=== PATIENT | female | born 1990 | race Caucasian/White ===

== ENCOUNTER → 2018-09-24 15:28 | Outpatient (CLI) | payer MEDICAID, SELFPAY ==
--- NOTE | 2018-09-24 15:36 | RAD_ITS ---
STUDY: X-RAY CHEST REASON FOR EXAM: Female, 27 years old. Pneumonia TECHNIQUE: PA and lateral chest COMPARISON: None. FINDINGS: The lungs are clear and expanded. There is no demonstrated pleural abnormality. Normal size heart. Normal mediastinum and addison. Normal visualized pulmonary arteries. Normal visualized aortic arch and descending thoracic aorta. Normal visualized thoracic spine. Normal visualized ribs, clavicles, and shoulders. There is no demonstrated abnormality of the visualized soft tissue structures of the upper abdomen. RAD/Chest PA and Lateral IMPRESSION: Normal x-ray examination of the chest. Electronically Signed: Fuentes Alvarado, at 15:56 EDT Tel , Service support ,
[2018-09-24 17:49] LABS: Absolute Lymphocyte Count 2.11 X10^3/ul (0.83-4.51); Basophil# 0.07 X10^3/uL; Eosinophil# 0.27 X10^3/uL; Eosinophils% 3.9 % (0-5); Hematocrit 40.6 % (37-47); Hemoglobin 13.4 g/dl (12.0-15.0); Lymphocyte # 2.11 X10^3/ul (4.0); Lymphocyte % 30.2 % (19-41); Mean Corpuscular Hgb 31.8 pg (27.0-32.0); Mean Corpuscular Volume 96.2 fL (81-99); Mean Platelet Vol. 9.1 fl (6.2-12.0); Monocyte# 0.51 X10^3/uL; Monocyte% 7.3 % (0-10); Neutrophil # 4.01 X10^3/uL (2.7-7.7); Neutrophil % 57.5 % (47-70); Platelet Count 496 K/mm3 (150-450); RBC Distribution Width CV 12.8 % (11.6-14.6); RBC Distribution Width SD 44.9 fl (35.1-43.9); Red Blood Count 4.22 M/mm3 (4.2-5.4)
[2018-09-24 18:01] LABS: POSITIVE COUNT NO; POSITIVE DIFFERENTIAL NO; POSITIVE MORPHOLOGY NO
[2018-09-24 18:04] LABS: ALB/GLOB Ratio 1.4 RATIO (0.9-2.4); AST(SGOT) 9 U/L (15-37); Alanine Aminotransfer ALT/SGPT 25 U/L (13-56); Albumin, Serum 4.3 g/dL (3.2-5.0); Alkaline Phosphatase 74 U/L (45-117); Anion Gap 7 (5-15); BUN 16 mg/dL (7-18); BUN/Creat Ratio 24.5 RATIO (10-20); Calcium,Total 8.4 mg/dL (8.5-10.1); Chloride 110 mmol/L (98-107); Creatinine, Serum 0.65 mg/dL (0.55-1.02); EST Glomerular Filtration Rate 114 mL/min (>60); Est Glom Filt Rate - Afr Amer 138 mL/min (>60); Globulin 3.1 g/dL (2.2-4.2); Glucose 85 mg/dL (74-106); Potassium 3.8 mmol/L (3.5-5.1); Protein, Total 7.4 g/dL (6.4-8.2); Sodium Level 141 mmol/L (136-145); Thyroid Stim Hormone (TSH) 0.85 uIU/mL (0.358-3.74)
== END ==
PROVIDERS: Family Provider Family Medicine; PCP Family Medicine; Referring Provider Family Medicine; Visit Provider Family Medicine
DX: K21.9 Gastro-esophageal reflux disease without esophagitis (principal); F90.9 Attention-deficit hyperactivity disorder, unspecified type; J18.9 Pneumonia, unspecified organism
CPT/HCPCS: 36415; 71046; 80053; 84443; 85025

== ENCOUNTER → 2018-11-05 | Outpatient (CLI) | payer MEDICAID, SELFPAY ==
--- NOTE | 2018-11-06 10:06 | PFT ---
INTRODUCTION: The patient is a 28-year-old female that presents for pulmonary function studies secondary to a diagnosis of cough. Respiratory therapy reports good patient effort. Bronchodilators were used during testing. INTERPRETATION: Forced expiration spirometry demonstrates no evidence of a large airways obstructive ventilatory defect. There was no significant response to aerosolized bronchodilators. Spirograms are of good quality and plateau normally. Body plethysmography was performed and reveals lung volumes to be within normal limits. Diffusing capacity by single breath CO is at the lower limits of normal. IMPRESSION: Normal spirometry and lung volumes. Diffusing capacity is at the lower limits of normal. There was no significant bronchodilator response.
== END | disposition home or self-care (01) ==
LOC: PSN 13:26
PROVIDERS: Family Provider Family Medicine; PCP Family Medicine; Referring Provider Family Medicine; Visit Provider Family Medicine
DX: R05 Cough (principal)
CPT/HCPCS: 94060; 94726; 94729

== ENCOUNTER → 2018-11-12 | Outpatient (CLI) | payer MEDICAID, SELFPAY ==
--- NOTE | 2018-11-12 15:27 | RAD_ITS ---
STUDY: X-RAY - RIGHT WRIST REASON FOR EXAM: Female, 28 years old. Pain TECHNIQUE: 3 view(s) of the wrist were obtained. COMPARISON: None. FINDINGS: Normal visualized distal radius and ulna. Normal radiocarpal articulation. Normal distal radioulnar articulation. Normal carpal bones. Normal carpal articulations. Normal carpometacarpal articulation of the thumb. Normal second through fifth carpometacarpal articulations. Normal visualized metacarpal bones. The soft tissue structures are unremarkable. RAD/Wrist min 3 Views IMPRESSION: Normal x-ray examination of the wrist. Electronically Signed: Elan Case DO at 19:24 EDT Tel [phone], Service support ,
--- NOTE | 2018-11-12 15:27 | RAD_ITS ---
STUDY: X-RAY - LEFT WRIST REASON FOR EXAM: Female, 28 years old. Pain TECHNIQUE: 3 view(s) of the wrist were obtained. COMPARISON: None. FINDINGS: Normal visualized distal radius and ulna. Normal radiocarpal articulation. Normal distal radioulnar articulation. Normal carpal bones. Normal carpal articulations. Normal carpometacarpal articulation of the thumb. Normal second through fifth carpometacarpal articulations. Normal visualized metacarpal bones. The soft tissue structures are unremarkable. RAD/Wrist min 3 Views IMPRESSION: Normal x-ray examination of the wrist. Electronically Signed: Elan Case DO at 19:25 EDT Tel [phone], Service support ,
== END | disposition home or self-care (01) ==
LOC: MTRAD 15:26
PROVIDERS: Family Provider Family Medicine; PCP Family Medicine; Referring Provider Family Medicine; Visit Provider Family Medicine
DX: M25.531 Pain in right wrist (principal); M25.532 Pain in left wrist; G89.29 Other chronic pain
CPT/HCPCS: 73110

== ENCOUNTER → 2018-12-18 | Outpatient (CLI) | payer MEDICAID, SELFPAY ==
[2018-12-14 15:48] VITALS: BMI 25.0
--- NOTE | 2018-12-18 14:46 | US_ITS ---
STUDY: ABDOMINAL ULTRASOUND - RIGHT UPPER QUADRANT REASON FOR VISIT: Female, 28 years old. Pain TECHNIQUE: Ultrasound evaluation of the right upper quadrant was performed with real-time and static barahona-scale imaging. TECHNICAL QUALITY: Adequate. COMPARISON: None. FINDINGS: Liver: The liver measures 15 cm. There is normal echogenicity of the liver. The bile ducts are within normal limits. There is hepatic color flow. The direction of portal flow is hepatopetal. There is no demonstrated mass lesion. Gallbladder: Normal distended gallbladder. The gallbladder wall measures 2 mm. There is a negative sonographic Sher's sign. There is no pericholecystic fluid. There are no gallstones. Common Bile Duct (C.B.D.): The common bile duct measures 3 mm. Pancreas: Normal size of the head, body and tail of the pancreas. There is normal echogenicity of the pancreas. There is no demonstrated pancreatic mass or cyst. Right Kidney: Normal size of the right kidney. The right kidney measures 11 cm. Normal renal cortex. There is no demonstrated renal mass or cyst. There is no right hydronephrosis. US/Gallbladder IMPRESSION: Normal right upper quadrant ultrasound examination. Electronically Signed: Senthil Diamond, at 17:41 EDT Tel , Service support ,
== END | disposition home or self-care (01) ==
LOC: US 14:44
PROVIDERS: Family Provider Family Medicine; PCP Family Medicine; Referring Provider Surgery; Visit Provider Surgery
DX: R14.0 Abdominal distension (gaseous) (principal); R10.9 Unspecified abdominal pain
CPT/HCPCS: 76705

== ENCOUNTER → 2018-12-23 | Outpatient (CLI) | payer MEDICAID, SELFPAY ==
[2018-12-14 15:48] VITALS: BMI 25.0
--- NOTE | 2018-12-23 08:15 | RAD_ITS ---
STUDY: AIR-CONTRAST UPPER GI SERIES. REASON FOR EXAM: Female, 28 years old. Abdominal pain. Gastroesophageal reflux disease. FLUOROSCOPY TIME (if supplied): (0:52) minutes/seconds. 22 images were obtained. TECHNIQUE: The patient ingested barium. Multiple images of the esophagus stomach and duodenum were obtained. COMPARISON: None. FINDINGS: The esophagus is unremarkable. There is no evidence of a obstruction. No mass lesion is seen. There is no evidence of gastroesophageal reflux. The stomach and duodenum are unremarkable. RAD/Upper GI Series Only IMPRESSION: Unremarkable air contrast upper GI series. Electronically Signed: Dominik Nunes, at 15:13 EDT , Service support ,
== END | disposition home or self-care (01) ==
LOC: RAD 08:09
PROVIDERS: Family Provider Family Medicine; PCP Family Medicine; Referring Provider Surgery; Visit Provider Surgery
DX: R10.9 Unspecified abdominal pain (principal); R14.0 Abdominal distension (gaseous)
CPT/HCPCS: 74246

== ENCOUNTER 2019-01-08 09:06 | Day surgery (SDC) | payer MEDICAID, SELFPAY ==
--- NOTE | 2018-12-14 04:36 | HP_ITS ---
Intake Vital Signs 12/14/18 Height 5 ft 2 in 12/14/18 Weight: 137 lb 12/14/18 Body Mass Index (BMI) 25.0 12/14/18 Blood Pressure 100/64 12/14/18 Blood Pressure Location Rt brachial 12/14/18 Blood Pressure Position Sitting 12/14/18 Respiratory Rate 14 12/14/18 Pulse Rate 64 12/14/18 Pulse Source Monitor 12/14/18 Pulse Ox 100 12/14/18 Oxygen Delivery Method room air Intake Visit Reasons: Gastroesophageal reflux disease (GERD) Radial Drill Operator Required: No Is patient in pain?: Yes (all of abdomen) Allergies acetaminophen [From Midol] Allergy (Unknown, Verified 12/14/18 15:49) Unknown pamabrom [From Midol] Allergy (Unknown, Verified 12/14/18 15:49) Unknown Medications carbamazepine ER 400 mg tablet,extended release,12 hr 400 mg PO BID 12/14/18 [History Confirmed 12/14/18] fluticasone propionate 50 mcg/actuation nasal spray,suspension 1 spray INTRANASAL DAILY 12/14/18 [History Confirmed 12/14/18] levonorgestrel 20 mcg/24 hours (5 yrs) 52 mg intrauterine device 1 device INTRAUTERINE ONCE 12/14/18 [History Confirmed 12/14/18] montelukast 10 mg tablet 10 mg PO QPM 12/14/18 [History Confirmed 12/14/18] omeprazole 40 mg capsule,delayed release 40 mg PO DAILY 12/14/18 [History Confirmed 12/14/18] topiramate 100 mg tablet 100 mg PO DAILY tab 12/14/18 [History Confirmed 12/14/18] [facility] Medical History GERD (gastroesophageal reflux disease) (Acute) Bipolar disorder (Acute) ADHD (Acute) Acid reflux (Acute) Constipation (Acute) Nausea (Acute) Abdominal pain (Acute) Asthma (Acute) SOB (shortness of breath) (Acute) Anxiety (Acute) Depression (Acute) Numbness and tingling (Acute) Fatigue (Acute) Surgical History History of incision and drainage (Acute) Hx of wisdom tooth extraction (Acute) History of (Acute) Hx of tonsillectomy (Acute) Family History Father Asthma Social History Smoking Status: Current every day smoker second hand exposure: No alcohol intake: current alcohol intake frequency: holidays/special occasions only caffeine: Yes HPI HPI HPI: LUCY LEYVA, is a 28 F who presents to the office today for HPI HPI Surgical H&P: Yes HPI: LUCY LEYVA, is a 28 F who presents to the office today for who is referred to me today by Dr Mikey Mcmahon regarding problems with acid reflux, GERD, bloating, food regurgitation, epigastric pain, respiratory symptoms with shortness of breath possible pneumonia possible asthma. The patient states 1 year ago she thought she swallowed a chicken bone. She was seen by Dr. Marlo WILKERSON who suggested that she had severe reflux. Treatment was initiated with Prilosec with good results. The patient states that she likes to eat extraordinarily spicy foods. She does not get the sense of distinct water brash or heartburn. She gets food that gets partially stuck. She believes in homeopathic remedies and is been trying to take vinegar to resolve her issues. More recently she has had pneumonia and increased respiratory problems thought possibly to be asthma. On top of that she was a cigarette smoker. She states that she has stopped the cigarettes but now she is vaping. She is aware that that is not ideal. For 2 weeks she had run out of her Prilosec. She states that her symptoms recurred with a vengeance. Dr Mikey Mcmahon saw the patient reinitiated her on omeprazole 40 mg daily. The patient states that she is improved but clearly not back to baseline. She has previously had one child via . She has not had to her knowledge a barium study of her esophagus and stomach nor an upper endoscopy yet. She did have a ENT fiberoptic exam of her oral pharynx. That is when she was instructed it was quite significantly inflamed. The patient states that she is high energy with some requirement for ongoing mental care. Bipolar disorder, PTSD, ADHD. She feels this is certainly aggravating her situation ROS General General: Yes fatigue; no weight change, appetite, colon cancer, breast cancer or weakness HEENT HEENT: No difficulty swallowing, eye injury, eye surgery, swollen glands or hoarseness Endo Endocrine: No thyroid disease, diabetes mellitus, thyroid cancer, Hair loss, heat intolerance or cold intolerance Skin Skin: No rash or changing moles Musc Musculoskeletal: Yes back problems; no arthritis, rheumatoid arthritis, gout or joint pain Cardio Cardiovascular: No murmur, pacemaker, heart disease, atrial fibrillation, high blood pressure, heart attack, heart stent, palpitations, shortness of breat with exertion or chest pain Psych Psychiatric: Yes depression and anxiety; no hearing voices Resp Respiratory: Yes shortness of breath, No sleep apnea, No cough, No COPD, Yes asthma, No emphysema, No wheezing Gastro Gastrointestinal: Yes abdominal pain, Yes nausea or vomiting, No diarrhea, Yes constipation, No blood in stool, Yes acid reflux, No hemorrhoids, No ulcers, No gallbladder problem, No black,tarry stools Sujit Hematologic: No blood thinners, No blood disorders, No bleeding, No anemia, No blood clots Neuro Neurologic: Yes numbness, Yes tingling, No weakness Exam Const General: cooperative, healthy appearing, comfortable, no acute distress Nutritional Appearance: average body habitus Orientation: alert, awake [facility] Head: normal to inspection Eyes General: appearance normal, both eyes and all related structures Neck Neck: normal visual inspection Chest Chest palpation & inspection: normal inspection of the chest Resp Effort & Inspection: normal respiratory effort Auscultation: clear to auscultation bilaterally Cardio Rate: regular rate Rhythm: regular rhythm Heart Sounds: no murmurs GI Palpation: soft, no hepatosplenomegaly Auscultation: normal bowel sounds Musc Cervical Spine: normal cervical lordosis Skin General: no rashes or lesions noted Neuro Cognition: normal cognition Extrem General: no calf tenderness bilaterally Psych Affect: animated Assessment & Plan 1. Gastroesophageal reflux disease, esophagitis presence not specified K21.9 Orders Orders: EGD Today 2. Epigastric pain R10.13 Plan 28-year-old female with signs and symptoms consistent with epigastric pain bloating and findings that would certainly suggest reflux and gastroesophageal reflux disease. History of cigarette smoking now apparently ceased but converted to vaping. History of significant abnormality noted on ENT evaluation. Significant improvement noted on omeprazole although currently she is not back to baseline. As noted above she does believe in homeopathic remedies. I suspect as there is Dr Mikey Mcmahon that this patient has clinically significant gastroesophageal reflux disease. I propose for her a contrast upper GI study. I also propose for her a esophagogastroduodenoscopy with possible biopsy. Would like to inspect for possible H. pylori or possible eosinophilic esophagitis in addition to the anticipated reflux. I do not believe that the patient will tolerate being off her medications so I do not propose a Stone pH probe placement. However the patient also eventually had a child. I would like to know whether she has a normal gallbladder 1 with stones prior to proposing potential for a surgical reflux procedure. I did briefly discuss with her the possible technique of a laparoscopic Tyrel fundoplication or toupet procedure. Of course the patient would have to have esophageal manometry prior to that. To help evaluate her gallbladder we will obtain a gallbladder ultrasound. She has had an opportunity to ask and have questions answered. I very much appreciate the kind opportunity of assisting with her surgical care. I anticipate further office follow-up subsequent to the above testing. Naturally the patient was vigorously encouraged to make all attempts to cease nicotine completely CC: Dr Mikey Mendoza M.D., F.A.C.S. Plan Detail Other Orders Orders: Gallbladder Today R10.9, R14.0 Upper GI Series Only Today R10.9, R14.0 Coding Level of Care Code Comprehensive,moderate Diagnoses Gastroesophageal reflux disease, esophagitis presence not specified K21.9 ??Esophagitis presence: esophagitis presence not specified Epigastric pain R10.13 ??Abdominal location: epigastric 12/14/18 1636 <Electronically signed by Fuentes garcia MD> Date _ Fuentes Mendoza MD I have re-examined the patient. There are no clinical changes since date of exam.
[2018-12-14 15:48] VITALS: BMI 25.0
[2019-01-08 09:29] LABS: Internal QC Validated? YES +Cl - CLEAR BKGD; Pregnancy, Urine Negative Negative
[2019-01-08 09:30] VITALS: BP 96/67; PULSE 71; RESP 16; TEMP 36.8; O2SAT 99; BMI 26.2
--- NOTE | 2019-01-08 10:15 | IMM_PTH ---
PATIENT: LUCY LEYVA LOC: EN U#:[id number] AGE/SX: 28/F ROOM: RE01/08/[address]: Dr. Fuentes Mendoza MD : 1990 BED: DIS: 01/08/2019 SPEC #: [id number] RECD: 01/08/19 13:28 STATUS: RUBIN RERoslyn #: [id number] GALINA: 01/08/19 10:[address]: Fuentes Mendoza DEPT: IMMUNOHISTOCHEMISTRY RECD BY: Kaylyn Alvarez ENTERED: 01/08/19 13:29 SP TYPE: IMMUNO OTHR DR: Dr. Mikey Mcmahon MD Tissues: B - Stomach, NOS Procedures: H Pylori (initial) PHYSICIAN & INSTITUTION [place] [address] SPECIMEN INFORMATION: Tissue Source: B - Antral biopsy Clinical Info: GERD Specimen Number: [id number] CPT code: 25251 METHODOLOGY: Deparaffinized sections of prefer/formalin-fixed tissue or PAP/DQ stained slides are incubated with monoclonal/polyclonal antibodies/oligonucleotide probes. Localization is made via biotin free immunoperoxidase method. Appropriate controls are performed and reacted as expected. Results on target cell population are indicated in the following table: RESULTS: ANTIBODY / CLONE RESULT Block B H Pylori (polyclonal) negative These tests were developed and their performance characteristics determined by [facility]. They may not have been cleared or approved by the U.S. Food and Drug Administration. The FDA has determined that such clearance or approval is not necessary. INTERPRETATION: B. Antral biopsy: Negative for Helicobacter pylori organisms. SJ:greg 01/12/19
--- NOTE | 2019-01-08 10:15 | EGD_PTH ---
PATIENT: LUCY LEYVA LOC: EN U#:[id number] AGE/SX: 28/F ROOM: RE01/08/[address]: Dr. Fuentes Mendoza MD : 1990 BED: DIS: 01/08/2019 SPEC #: [id number] RECD: 01/08/19 12:20 STATUS: RUBIN CHETNA #: [id number] GALINA: 01/08/19 10:[address]: Fuentes Mendoza DEPT: SURGICAL PATHOLOGY RECD BY: Dawna Kiser ENTERED: 01/08/19 13:26 SP TYPE: EGD BIOPSY OT DR: Dr. Mikey Mcmahon MD Tissues: A - Duodenum, NOS B - Gastric mucous membrane C - Esophageal mucous membrane D - Esophageal mucous membrane Procedures: Special Stain Group II Surgery Specimen Level IV Alcian Blue/PAS (control) HEADER OPERATION: EGD ([facility]) PRE-OP DIAGNOSIS: GERD TISSUE SUBMITTED: A. Duodenal biopsy, B. Antral biopsy for H. pylori and pathology, C. Distal esophageal biopsy, D. Mid esophageal biopsy MICROSCOPIC DIAGNOSIS A. Duodenal biopsy: Fragments of duodenal mucosa, no pathologic diagnosis. B. Antral biopsy: Mild gastritis. See microscopic description and comment. C. Distal esophageal biopsy: Fragments of gastroesophageal mucosa with mild chronic inflammation. Intestinal metaplasia (goblet cell metaplasia) is not identified. See comment. D. Mid esophageal biopsy: Fragments of squamous epithelium, no pathologic diagnosis. SJ:greg 01/11/19 COMMENT B. The results of immunohistochemistry for Helicobacter pylori will be reported separately ([id number]). C. Alcian blue/PAS stain with matched control is used in the evaluation of the specimen. MICROSCOPIC DESCRIPTION Slides are reviewed. B. The specimen shows fragments of gastric mucosa with chronic inflammatory cell infiltrates in the lamina propria consisting of lymphocytes and plasma cells, consistent with mild chronic gastritis. GROSS DESCRIPTION A - Received in fixative is one container labeled with the patient's name and designated duodenal biopsy. The specimen consists of two irregular fragments of reddish-pink soft tissue that in aggregate measure 0.2 x 0.1 x 0.1 cm. The specimen is totally submitted in one cassette. B - Received in fixative is one container labeled with the patient's name and designated antral biopsy. The specimen consists of one irregular fragment of romero-pink soft tissue that measures 0.2 x 0.1 x 0.1 cm. The specimen is totally submitted in one cassette. C - Received in fixative is one container labeled with the patient's name and designated distal esophageal biopsy. The specimen consists of one irregular fragment of romero-pink soft tissue that measures 0.2 x 0.1 x 0.1 cm. The specimen is totally submitted in one cassette. D - Received in fixative is one container labeled with the patient's name and designated mid esophageal biopsy. The specimen consists of one irregular fragment of romero-pink soft tissue that measures 0.2 x 0.1 x 0.1 cm. The specimen is totally submitted in one cassette. / CE:greg 01/08/19 TC:3 CPT: 25792 x4, 46496
[2019-01-08 10:53] VITALS: BP 100/63; BP 96/67; PULSE 67; RESP 16; TEMP 36.7; O2SAT 100
[2019-01-08 10:55] VITALS: BP 96/67; BP 99/65; PULSE 63; RESP 16; O2SAT 98
[2019-01-08 11:00] VITALS: BP 110/76; BP 96/67; PULSE 65; RESP 16; O2SAT 100
[2019-01-08 11:07] VITALS: BP 103/59; BP 96/67; PULSE 65; RESP 16; TEMP 36.6; O2SAT 98
[2019-01-08 11:23] VITALS: BP 96/67
--- NOTE | 2019-01-13 10:43 | OP.ENDO_ITS ---
01/13/2019 Mikey Mcmahon [address] [place] [address] Re : Upper GI endoscopy procedure for Alex Freep[place] Dear Dr. Mcmahon This procedure was performed on Tuesday, January 08, 2019. My impressions and recommendations are as follows: Impressions : - Z-line variable, 36 cm from the incisors. Biopsied distal esophagus at EG junction Mid esophagea biopsies obtained as well - Erythematous mucosa in the stomach. Biopsied. - Normal examined duodenum. Biopsied. Recommendations : - Discharge patient to home. - Resume previous diet. - Use sucralfate tablets 1 gram PO QID. Patient is on omeprazole. Possbile bile reflux gastritis If patient doesn't improve, consider a gastric emptying study - Telephone my office for pathology results in 1 week. - Continue present medications. My findings are described in the full procedure note, which is enclosed. If I can be of further assistance, please feel free to contact me at Doctor phone number(s): Work: . Sincerely, Fuentes Mendoza MD 01/08/2019 10:54:02 AM This report has been signed electronically.
== END 2019-01-08 11:33 | disposition home or self-care (01) ==
LOC: EN 09:07 → AC 09:08
PROVIDERS: Anesthesiology; Family Provider Family Medicine; PCP Family Medicine; Referring Provider Family Medicine; Visit Provider Surgery
PROC: 0DJ08ZZ Inspection of Upper Intestinal Tract, Via Natural or Artificial Opening Endoscopic (ICD-10-PCS; CPT 43235; principal; 2019-01-08 10:10)
DX: K29.70 Gastritis, unspecified, without bleeding (principal); K21.9 Gastro-esophageal reflux disease without esophagitis; F31.9 Bipolar disorder, unspecified; F90.9 Attention-deficit hyperactivity disorder, unspecified type; J45.909 Unspecified asthma, uncomplicated; F41.9 Anxiety disorder, unspecified; F32.9 Major depressive disorder, single episode, unspecified; F43.10 Post-traumatic stress disorder, unspecified; M41.9 Scoliosis, unspecified; Z86.2 Personal history of diseases of the blood and blood-forming organs and certain disorders involving the immune mechanism; Z79.899 Other long term (current) drug therapy; F17.200 Nicotine dependence, unspecified, uncomplicated
CPT/HCPCS: 43239; 81025; 88305; 88313; 88342; J7120; J2405

== ENCOUNTER → 2019-02-04 | Outpatient (CLI) | payer MEDICAID, SELFPAY ==
[2019-01-08 09:30] VITALS: BMI 26.2
--- NOTE | 2019-02-04 13:05 | NM_ITS ---
CLINICAL: 28-year-old male with reported history of postprandial abdominal pain and bloating, early satiety. SEMI-SOLID PHASE 99m Tc SULFUR COLLOID GASTRIC EMPTYING STUDY COMPARISON: Air contrast upper GI series report 12/23/2018 FINDINGS: The patient was administered 1.0 mCi of 99m Tc sulfur colloid mixed with oatmeal and consumed per os. Image acquisitions in the anterior-posterior projections for a total of 60 minutes. There is prompt visualization of the stomach. There is no gastroesophageal reflux identified. The T1/2 linear fit was calculated to be 36.56 minutes, (Normal: 12-56 minutes). NM/Gastric Emptying Study IMPRESSION: 1. NORMAL 99m Tc sulfur colloid semi-solid phase (oatmeal) gastric emptying imaging examination. A. There is normal and preserved semi-solid phase gastric emptying compared to normal controls. (Sven et al, J Nucl Med Tech 38: 186, 2010). Electronically Signed: Oleg Tovar DO at 0:29 EDT Tel , Service support ,
== END | disposition home or self-care (01) ==
LOC: NM 13:05
PROVIDERS: Family Provider Family Medicine; PCP Family Medicine; Referring Provider Surgery; Visit Provider Surgery
DX: R10.9 Unspecified abdominal pain (principal); R68.81 Early satiety; R11.0 Nausea
CPT/HCPCS: 78264; A9541

== ENCOUNTER → 2019-04-05 17:43 | Outpatient (CLI) | payer MEDICAID, SELFPAY ==
[2019-04-05 18:01] LABS: Absolute Neutrophil Count 5.1 X10^3/uL (2.0-7.7); Basophil# 0.04 X10^3/uL; Basophil% 0.5 % (0-1); Eosinophils% 1.3 % (0-5); Hematocrit 38.7 % (37-47); Hemoglobin 13.3 g/dL (12.0-15.0); Lymphocyte % 26.8 % (19-41); Mean Corp Hgb Conc 34.4 g/dL (32-36); Mean Corpuscular Hgb 32.8 pg (27.0-32.0); Mean Corpuscular Volume 95.3 fL (81-99); Mean Platelet Vol. 8.4 fl (6.2-12.0); Monocyte# 0.45 X10^3/uL; Monocyte% 5.7 % (0-10); NRBC Flagged by Analyzer 0 % (0-5); Neutrophil # 5.14 X10^3/uL (2.7-7.7); Neutrophil % 65.4 % (47-70); Platelet Count 316 K/mm3 (150-450); RBC Distribution Width CV 12.1 % (11.6-14.6); RBC Distribution Width SD 43.2 fl (35.1-43.9); Red Blood Count 4.06 M/mm3 (4.2-5.4); White Blood Count 7.9 K/mm3 (4.4-11.0)
[2019-04-05 18:35] LABS: Carbamazepine (Tegretol) 7.1 ug/mL (4.0-12.0)
[2019-04-05 18:38] LABS: ALB/GLOB Ratio 1.4 RATIO (0.9-2.4); AST(SGOT) 9 U/L (15-37); Alanine Aminotransfer ALT/SGPT 26 U/L (13-56); Albumin, Serum 4.1 g/dL (3.2-5.0); Alkaline Phosphatase 48 U/L (45-117); Anion Gap 6 (5-15); BUN 13 mg/dL (7-18); BUN/Creat Ratio 19.2 RATIO (10-20); Calcium,Total 8.6 mg/dL (8.5-10.1); Chloride 110 mmol/L (98-107); Creatinine, Serum 0.68 mg/dL (0.55-1.02); EST Glomerular Filtration Rate 109 mL/min (>60); Est Glom Filt Rate - Afr Amer 132 mL/min (>60); Glucose 92 mg/dL (74-106); Protein, Total 7.1 g/dL (6.4-8.2); Sodium Level 141 mmol/L (136-145); Thyroid Stim Hormone (TSH) 1.28 uIU/mL (0.358-3.74)
== END ==
PROVIDERS: Family Provider Family Medicine; PCP Family Medicine; Visit Provider Registered Nurse
DX: Z79.899 Other long term (current) drug therapy (principal)
CPT/HCPCS: 36415; 80053; 80156; 84443; 85025

== ENCOUNTER 2019-04-22 15:18 | Emergency (ER) | payer MEDICAID, SELFPAY ==
[2019-04-22 15:19] VITALS: BP 157/83; PULSE 94; RESP 17; TEMP 36.9; O2SAT 98; BMI 25.4
--- NOTE | 2019-04-22 15:31 | CT_ITS ---
STUDY: CT ABDOMEN AND PELVIS WITH CONTRAST REASON FOR EXAM: Female, 28 years old. Abdominal pain. Currently on antibiotics for pneumonia. RADIATION DOSAGE (If Supplied By Facility): CTDIvol = ( 10.47 ) mGy, DLP = ( 537.97 ) mGycm TECHNIQUE: Transaxial images were obtained from the dome of the diaphragm to the symphysis pubis with oral contrast. IV/Oral Isovue 300 100CC was administered. Sagittal and coronal images were reconstructed. Individualized dose optimization techniques were used for this CT. COMPARISON: None. FINDINGS: The visualized lung bases are unremarkable. The visualized portions of the heart are within normal limits. Normal liver. Normal gallbladder and extrahepatic biliary system. Normal spleen. Normal pancreas. Normal bilateral adrenal glands. Normal right kidney. Normal left kidney. Food filled stomach. Normal small intestine. Stool filled colon. The appendix is visualized and appears normal. Normal abdominal aorta. Normal inferior vena cava. Normal retroperitoneum. Normal urinary bladder. Negative for pelvic mass or free fluid of the pelvis. Unremarkable visualized uterus and ovaries. Normal abdominal wall. Normal osseous structures. CT/Abdomen/Pelvis WITH Contrast IMPRESSION: Stool filled colon. Otherwise, normal abdomen and pelvic CT exam. Electronically Signed: Sarina Ellis MD at 18:02 EDT , Service support ,
--- NOTE | 2019-04-22 15:38 | ED.VISSUMM ---
- ER Visit Summary Date of Service: 04/22/19 Chief Complaint: [Abdominal pain] History of Present Illness: The patient is a 28 F [presents to the emergency department with abdominal pain that started at 6 AM this morning. Patient states that she is currently being treated for pneumonia with Augmentin as well as Zithromax and prednisone. Patient was seen by her primary care physician for the abdominal pain today and sent to the ER for further evaluation. Patient denies any fever. She denies any vomiting. Patient states the pain came on rather suddenly. Patient also complaining of urinary frequency with it. She denies any hematuria. She states after she is done emptying her bladder she has spasms. Patient states this feels different than prior UTIs that she had. Patient also states that she recently had her IUD removed but does not believe that she is as her boyfriend has had a vasectomy. Patient states the pain is in the right side of the abdomen and radiate straight through to her back. Patient does have history of gastritis. Patient also had apparently in December and ultrasound of her gallbladder that was unremarkable.] Physical Examination: [HEENT-PERRLA, EOMI. Cranial nerves II through XII grossly intact. TMs clear. Mucous membranes moist. No adenopathy. Cardiovascular-regular rate and rhythm without murmur or ectopy Lungs-clear to auscultation, chest wall stable without crepitus or subcu emphysema Abdomen-normoactive bowel sounds, soft. Patient has tenderness palpation over the right side of the abdomen diffusely. There is no rebound, rigidity, or perennial signs. No CVA tenderness on exam. Extremities-intact ?4, normal range of motion, normal pulses, atraumatic] Test Results: [CBC with differential was normal. Chemistries unremarkable. LFTs were normal. Urinalysis normal. Lactate was 1.5. hCG was negative. Chest x-ray was read as normal. CT scan of the abdomen pelvis showed a stool-filled colon otherwise nothing acute.] Emergency Department Course and Treatment: [Was medicated with Toradol 15 mg IV. Patient did feel improved.] Treatment Plan: [Continue with her current medications. Patient advised to follow-up with her primary care physician within next 3 to 5 days. Patient advised to push fluids. Patient to return if worsening pain, fever, vomiting, or conditions worsen anyway.] Disposition: [Discharged home in stable condition.] Impression: [Abdominal pain-etiology uncertain] This note was generated with [employer] dictation software. It may contain incorrect words, spelling, and punctuation that were not noted in review of the chart prior to signing ED Disposition - Plan for ED Patient: Referrals: Mikey Mcmahon MD [Primary Care Provider] -
[2019-04-22 15:53] LABS: Absolute Lymphocyte Count 2.98 X10^3/uL (0.83-4.51); Basophil# 0.05 X10^3/uL; Basophil% 0.5 % (0-1); Eosinophil# 0.03 X10^3/uL; Eosinophils% 0.3 % (0-5); Hematocrit 41.3 % (37-47); Lymphocyte # 2.98 X10^3/ul (4.0); Lymphocyte % 30.5 % (19-41); Mean Corp Hgb Conc 33.9 g/dL (32-36); Mean Corpuscular Hgb 32.4 pg (27.0-32.0); Mean Corpuscular Volume 95.6 fL (81-99); Mean Platelet Vol. 8.5 fl (6.2-12.0); Monocyte# 0.67 X10^3/uL; Monocyte% 6.9 % (0-10); NRBC Flagged by Analyzer 0 % (0-5); Neutrophil # 6.02 X10^3/uL (2.7-7.7); Neutrophil % 61.5 % (47-70); Platelet Count 375 K/mm3 (150-450); RBC Distribution Width SD 42.4 fl (35.1-43.9); Red Blood Count 4.32 M/mm3 (4.2-5.4); White Blood Count 9.8 K/mm3 (4.4-11.0)
[2019-04-22 15:57] VITALS: BP 157/83; PULSE 94; RESP 17; TEMP 36.9; O2SAT 98
[2019-04-22 16:09] LABS: Internal QC Validated? YES +Cl - CLEAR BKGD; Pregnancy, Serum, hCG Quali. NEGATIVE Negative
[2019-04-22] MEDS: 0.9% Normal Saline 1,000 ML 125 ML IV (16:13)
[2019-04-22 16:14] LABS: ALB/GLOB Ratio 1.4 RATIO (0.9-2.4); AST(SGOT) 23 U/L (15-37); Alanine Aminotransfer ALT/SGPT 51 U/L (13-56); Albumin, Serum 4.1 g/dL (3.2-5.0); Alkaline Phosphatase 56 U/L (45-117); Anion Gap 8 (5-15); BUN 13 mg/dL (7-18); BUN/Creat Ratio 18.9 RATIO (10-20); Calcium,Total 8.8 mg/dL (8.5-10.1); Chloride 110 mmol/L (98-107); Creatinine, Serum 0.69 mg/dL (0.55-1.02); EST Glomerular Filtration Rate 107 mL/min (>60); Est Glom Filt Rate - Afr Amer 129 mL/min (>60); Estimated Creatinine Clearance 95.15 ml/min; Globulin 2.9 g/dL (2.2-4.2); Glucose 102 mg/dL (74-106); Potassium 3.6 mmol/L (3.5-5.1); Sodium Level 146 mmol/L (136-145)
[2019-04-22] MEDS: Ketorolac 30 MG/ML Syringe 15 MG IV (16:14)
[2019-04-22 16:26] LABS: Lactic Acid 1.5 mmol/L (0.4-2.0)
[2019-04-22 16:30] LABS: Bacteria 0 SEEN /hpf (None Seen); Red Blood Cells-Urine 0 SEEN /hpf (0-5)
[2019-04-22 16:40] LABS: Color, Urine Yellow (Yellow); Glucose, Dipstick Normal (Normal); Ketone-Dipstick 5 mg/dl (Negative); Leukocyte Esterase-Dipstick 25 /ul (Negative); Nitrite-Dipstick Negative (Negative); Occult Blood-Urine Negative /ul (Negative); Protein-Dipstick Negative (Negative); Urine Bilirubin Dipstick Negative (Negative); Urine Clarity Sl. Cloudy (Clear); Urine Urobilinogen 1 mg/dl (Normal)
[2019-04-22 17:00] LABS: Mucous, Urine 1+ /hpf (<or=2+); Squamous Epithelial Cells - UA 0-5 SEEN /hpf (5-10); White Blood Cells 0-5 SEEN /hpf (0-5)
--- NOTE | 2019-04-22 17:45 | RAD_ITS ---
STUDY: X-RAY CHEST REASON FOR EXAM: Female, 28 years old. Cough and shortness of breath. TECHNIQUE: 2 views COMPARISON: Prior chest radiograph from September 24, 2018 FINDINGS: The lungs are clear and expanded. There is no demonstrated pleural abnormality. Normal size heart. Normal mediastinum and addison. Normal visualized pulmonary arteries. Normal visualized aortic arch and descending thoracic aorta. Normal visualized thoracic spine. Normal visualized ribs, clavicles, and shoulders. There is no demonstrated abnormality of the visualized soft tissue structures of the upper abdomen. RAD/Chest PA and Lateral IMPRESSION: Normal x-ray examination of the chest. Electronically Signed: Sarina Ellis MD at 17:56 EDT , Service support ,
--- NOTE | 2019-04-22 18:43 | ED.DEP ---
ED Disposition - Plan for ED Patient: Instructions: ABDOMINAL PAIN, Unknown Cause, (Female) Referrals: Mikey Mcmahon MD [Primary Care Provider] - 3-5 Days
[2019-04-22 18:49] VITALS: BP 119/78; PULSE 81; RESP 16; O2SAT 98
--- NOTE | 2019-04-22 18:49 | ED.RN ---
THIS NURSE REVIEWED D/C INSTRUCTIONS WITH PT. PT VERBALIZED UNDERSTANDING OF INSTRUCTIONS. IV D/C. IV CATHETER INTACT. PT TOLERATED WELL. PT REQUESTED A BANDAID TO COVER THE SITE. PT DENIES FURTHER NEEDS OR QUESTIONS AT THIS TIME.
[2019-04-22 19:41] LABS: Chlamydia Trachomatis by PCR Negative (Negative); Neisserai gonorrhoeae by PCR Negative (Negative); Probe Check PASS; Sample Adequacy Control PASS; Specimen Processing Control PASS
== END 2019-04-22 18:52 | disposition home or self-care (01) ==
PROVIDERS: Emergency Provider Emergency Medicine; Family Provider Family Medicine; PCP Family Medicine
DX: R10.9 Unspecified abdominal pain (principal); R35.0 Frequency of micturition; J18.9 Pneumonia, unspecified organism; Z87.440 Personal history of urinary (tract) infections; Z87.19 Personal history of other diseases of the digestive system; Z72.0 Tobacco use
CPT/HCPCS: 71046; 74177; 80053; 81001; 83605; 84703; 85025; 87086; 87491; 87591; 96361; 96374; 99283; J7030; Q9967; A4216